=== PATIENT | male | born 1960 | race Caucasian/White ===

== ENCOUNTER 2025-02-27 16:41 | Emergency (ER) | payer MEDICAID, MEDICARE, SELFPAY ==
[2025-02-27 16:46] VITALS: BP 138/86; PULSE 98; RESP 18; TEMP 36.6; O2SAT 96; BMI 29.1
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
[2025-02-27] MEDS: TETRACAINE 0.5% OPHTH 1 DROP EYE-RIGHT (17:57)
[2025-02-27] MEDS: FLUORESCEIN SODIUM TOPICAL STRIP 1 STRIP EYE-RIGHT (17:57)
== END 2025-02-27 17:57 | disposition home or self-care (01) ==
PROVIDERS: Emergency Provider Student in an Organized Health Care Education/Training Program; PCP Family Medicine
DX: T15.81XA Foreign body in other and multiple parts of external eye, right eye, initial encounter (principal)
CPT/HCPCS: 99283; A9270